=== PATIENT | male | born 1945 | race Caucasian/White ===

== ENCOUNTER 2016-11-30 18:21 | Emergency (ER) | payer MEDICARE, OTHER ==
[2016-11-30] MEDS ORDERED: NORMAL SALINE 1,000 ML IV ONE (19:53)
--- NOTE | 2016-11-30 19:54 | ERNOTE ---
Medical Problem HPI - Narrative Date of Service: 11/30/16 - General Chief Complaint: General Assessment - Immun/Allergies/Home Medications Immunizations: IMMUNIZATION HX Immunizations Up to Date Yes History of Influenza Vaccine Yes Allergies/Adverse Reactions: Allergies No Known Allergies Allergy (Verified 11/30/16 19:22) Home Medications: HOME MEDICATIONS Blood Sugar Diagnostic, Drum [Accu-Chek Compact] 1 each MC QID 03/25/15 [Last Taken Unknown] Insulin Glargine,Hum.rec.anlog [Lantus Solostar] 5 unit SC HS 03/25/15 [Last Taken Unknown] Simvastatin [Zocor] 20 mg PO HS 03/25/15 [Last Taken Unknown] Bumetanide [Bumex] 2 mg PO BID 09/15/16 [Last Taken Unknown] Calcium Acetate [Phoslo] 667 mg PO TID 09/15/16 [Last Taken Unknown] Cholecalciferol (Vitamin D3) [Vitamin D3] 50,000 unit PO Q7D 09/15/16 [Last Taken 09/09/16 09:00] Magnesium Oxide [Magnesium] 400 mg PO DAILY 09/15/16 [Last Taken Unknown] Vit B Cplx #11/FA/C/Biot/Zn Ox [Dialyvite with Zinc Tablet] 1 tab PO DAILY 09/15 [Last Taken Unknown] Bumetanide [Bumex] 2 mg PO BID #60 tablet 09/16/16 [Last Taken Unknown] Clopidogrel Bisulfate [Plavix] 75 mg PO DAILY #30 tab 09/16/16 [Last Taken Unknown] - History of Present History Narrative: Here for one episode of low BP today at 1600. Pt has NO complaints. He does get dialysis and was last dialized today in the morning. Review of Systems - Review of Systems Constitutional: Present: fatigue, malaise Respiratory: Present: no symptoms reported Cardiology: Present: no symptoms reported Gastrointestinal/Abdominal: Present: no symptoms reported Genitourinary: Present: no symptoms reported - Patient's Past Medical History Patient History - Medical: Diabetes Type 2, Diabetes Type 2 Insulin Dependent, Renal Failure Patient History - Cardiac/Respiratory: Atrial Fibrillation, Coronary Heart Disease, Sleep Apnea Patient History - Cancer: Kidney Patient History - Surgical Procedures: Cataracts, Colonoscopy Patient History - Other: None - Family History Father Family History - Medical: , Diabetes Type 2 Family History - Cardiac/Respiratory: No pertinent hx Mother Family History - Medical: Family History - Cardiac/Respiratory: Hypertension - Social History Living Situations: skilled nursing Abuse History: No History of abuse Psych History: No pertinent hx Smoking Status: Never smoker Alcohol Use: none Drug Use: none - Immunizations Immunizations Up to Date: Yes History of Influenza Vaccine: Yes Physical Exam - Physical Exam Narrative: Extremely pale and weak appearing male patient. He has bruising to left elbow. General Appearance: Present: wd/wn, alert, thin Eye Exam: Normal inspection: bilateral, PERRL: bilateral, EOMI: bilateral - pt has conjunctival pallor Ears, Nose, Throat: Present: hearing grossly normal Respiratory: Present: no respiratory distress, normal breath sounds, no accessory muscle use, chest nontender, lungs clear Cardiovascular/Chest: Present: regular rate, rhythm, no murmur Gastrointestinal/Abdominal: Present: normal bowel sounds, nontender, nondistended ED Progress - Results and Orders Patient's Lab Results:: I have reviewed the patient's lab results. - Vital Signs Patient's Vital Signs:: I have reviewed the patient's vital signs. Vital Signs: Vital Signs 11/30/16 18:29 Temperature 36.9 C Pulse Rate 72 Respiratory 12 Rate Blood Pressure 124/71 O2 Sat by Pulse 97 Oximetry - Progress/Reassessment Chief Complaint: General Assessment Plan - Plan Plan: pt has been a very hard stick for lab. His Hb is 5 at this time and his last Hb was 10.5. in 08/2017. Pt's BP has been 114/48 and 128/71 however this patient is hesitant to do any orthostatics on pt. They indicate a desire to go "where out doctors are" which is [facility] in [place]. Departure - Departure Clinical Impression: Anemia Qualifiers: Anemia type: other cause Disposition: [facility] Condition: Fair
[2016-11-30 20:39] LABS: Mean Cell Volume 97.1 fl (78-100); Mean Corpuscular Hemoglobin 33.1 pg (27-31); Mean Corpuscular Hgb Conc 34.1 g/dl (32-36); Mean Platelet Volume 11.2 fl (6.0-9.5); Neutrophil # 3.1 K/mm3 (1.3-6.0); Neutrophil % 78.6 % (42-75.0); Platelet Count 87 K/mm3 (150-450); Red Blood Count 1.72 M/mm3 (4.7-6.0)
[2016-11-30 20:51] LABS: Anion Gap 5.8 mmol/L (6.8-13.8); BUN/Creatinine Ratio 12.7 (9.0-21.6); Bilirubin, Total 0.3 mg/dL (0.0-1.1); Ca. Corrected For Albumin 9.3 mg/dL (8.4-10.2); Carbon Dioxide 29.1 mmol/L (24-32.6); Potassium 3.9 mmol/L (3.4-4.6)
[2016-11-30 20:52] LABS: Hematocrit 16.7 % (42.0-52.0); Hemoglobin 5.7 gm/dL (13.5-18.0)
[2016-11-30 21:30] VITALS: BP 138/47
== END 2016-11-30 21:52 | disposition short-term general hospital (02) ==
LOC: ER 18:21
DX: D64.9 Anemia, unspecified (principal); E11.9 Type 2 diabetes mellitus without complications; Z79.4 Long term (current) use of insulin; I51.9 Heart disease, unspecified; N19 Unspecified kidney failure; Z85.528 Personal history of other malignant neoplasm of kidney